=== PATIENT | female | born 1965 | race Caucasian/White ===

== ENCOUNTER 2019-06-15 14:19 | Emergency (ER) | payer OTHER, MEDICAID ==
[~2019-06-15] VITALS: Ht 172.7 cm; Wt 79.4 kg
[2019-06-15 14:55] VITALS: BP 127/99
== END 2019-06-15 16:26 | disposition home or self-care (01) ==
LOC: ER 14:19
DX: L03.031 Cellulitis of right toe (principal); E78.5 Hyperlipidemia, unspecified

== ENCOUNTER → 2022-08-02 | Emergency (ER) | payer OTHER, MEDICAID ==
[~2022-08-02] VITALS: Ht 172.7 cm; Wt 80.9 kg
[2022-08-02 17:25] VITALS: BP 109/82
== END | disposition left against medical advice (07) ==
LOC: ER 17:25
DX: M54.9 Dorsalgia, unspecified (principal); Z53.21 Procedure and treatment not carried out due to patient leaving prior to being seen by health care provider

== ENCOUNTER 2025-06-02 01:43 | Emergency (ER) | payer OTHER, MEDICAID ==
[~2025-06-02] VITALS: Ht 172.7 cm; Wt 80.0 kg
[2025-06-02 01:57] VITALS: BP 135/80; PULSE 107; RESP 14; TEMP 98.6; O2SAT 96
[2025-06-02] MEDS ORDERED: HYDROmorphone HCL 2 MG/ML VL/or syr IM ONE (02:15)
[2025-06-02] MEDS ORDERED: ONDANSETRON ODT 4 MG TAB PO ONE (02:15)
--- NOTE | 2025-06-02 02:15 | ED.PDOC ---
HPI (NEURO) HPI Comments A 60 year-old female, who ambulates with a electric wheelchair, with a HX migraines, presents to the ED via wheelchair with a chief complaint of migraine. Patient states she has used Imitrex in the past with success, but stated to rounds of Imitrex today did not stopped the headache. 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 Patient went to [facility] days ago and had a full work-up done, with Head CT, no aneurism was found. Patient has no further complaints at this time and otherwise denies N/V/D, dizziness, fever, chills, or chest pain. Chief Complaint: Migraine Time Seen by MD: 02:00 Primary Care Provider: IGNACIO Wellington Notes: Nurses Notes, Medications, Allergies Information Source: Patient Mode of Arrival: Wheelchair Severity: Moderate Dizziness/Weakness Severity: Unable to do activities Headache Severity: Severe Timing: Hours Duration: Since onset Prehospital treatment: None Headache Location: Generalized Onset: At rest, With light exertion, With heavy exertion Circumstances: Spontaneous Associated Signs and Symptoms: Headache, Other (Migraine ) Past Medical History PAST MEDICAL HISTORY: Arthritis, High Lipids Past Medical History (Other): History of migraines. Patient utilizes an electric wheelchair. Surgical History: Denies all surgeries MANAGER SUMMER History: Denies all MANAGER SUMMER Hx Family History Family History: No family hx of Heart kiet Social History Smoker: Non-Smoker Alcohol: Denies ETOH Use Drugs: Denies Drug Use Lives In: Home Constitutional: denies: chills, diaphoresis, fatigue, fever, malaise, sweats, weakness, others EENTM: denies: blurred vision, double vision, ear bleeding, ear discharge, ear drainage, ear pain, ear ringing, eye pain, eye redness, hearing loss, mouth pain, mouth swelling, nasal discharge, nose bleeding, nose congestion, nose pain, photophobia, tearing, throat pain, throat swelling, voice changes, others Respiratory: denies: cough, hemoptysis, orthopnea, SOB at rest, shortness of breath, SOB with excertion, stridor, wheezing, others Cardiovascular: denies: chest pain, dizzy spells, diaphoresis, Dyspnea on exertion, edema, irregular heart beat, left arm pain, lightheadedness, palpitations, PND, syncope, others Gastrointestinal: denies: abdomen distended, abdominal pain, blood streaked bowels, constipated, diarrhea, dysphagia, difficulty swallowing, hematemesis, melena, nausea, poor appetite, poor fluid intake, rectal bleeding, rectal pain, vomiting, others Genitourinary: denies: abnormal vagina bleeding, burning, dyspareunia, dysuria, flank pain, frequency, hematuria, incontinence, pain, , vagina discharge, urgency, others Neurological: reports: headache; denies: dizziness, fainting, left sided numbness, left sided weakness, numbness, paresthesia, pre-existing deficit, right sided numbness, right sided weakness, seizure, speech problems, tingling, tremors, weakness, others Musculoskeletal: denies: back pain, gout, joint pain, joint swelling, muscle p ain, muscle stiffness, neck pain, others Integumetry: denies: bruises, change in color, change in hair/nails, dryness, laceration, lesions, lumps, rash, wounds, others Allergic/Immunocompromised: denies: Difficulty Healing, Frequent Infections, Hives, Itching, others Hematologic/Lymphatic: denies: anemia, blood clots, easy bleeding, easy bruising, swollen glands, others Endocrine: denies: excessive hunger, excessive sweating, excessive thirst, excessive urination, flushing, intolerance to cold, intolerance to heat, unexplained weight gain, unexplained weight loss, others Psychiatric: denies: anxiety, bipolar disorder, depression, hopeless, panic disorder, schizophrenia, sleepless, suicidal, others All Other Systems: Reviewed and Negative Physical Exam General Appearance: Moderate Distress (Moderate distress due to headache concerns.), Normal HEENT: Head (Unremarkable cranial evaluation. No signs of trauma. No skull depressions or deformities.), Normal ENT Inspection, Pharynx Normal, TMs Normal Neck: Full Range of Motion, Non-Tender, Normal, Normal Inspection Respiratory: Chest Non-Tender, Lungs Clear, No Accessory Muscle Use, No Respiratory Distress, Normal Breath Sounds Cardiovascular: No Edema, No JVD, No Murmur, No Gallop, Normal Peripheral Pulses, Regular Rate/Rhythm Breast Exam: Deferred Gastrointestinal: No Organomegaly, Non Tender, No Pulsatile Mass, Normal Bowel Sounds, Soft Genitalia: Deferred Pelvic: Deferred Rectal: Deferred Extremities: Other (Patient utilizes an electric wheelchair for ambulation.) Neurologic: Alert, No Motor Deficits, Normal Affect, Normal Mood, No Sensory Deficits Cerebellar Function: NOT DONE Reflexes: NOT DONE Skin: Dry, Normal Color, Warm Lymphatic: No Adenopathy Was a procedure done? Was a procedure done?: No Differential Diagnosis (SZ) General Weakness: Anemia Headache: Migraine, Sinusitis, Other (Cluster headache, tension headache) X-Ray, Labs, Meds, VS Comment After patient was initially triaged, patient confess to suicidal ideations. Patient's narcotic pain medication was stopped and laboratories were ordered as well as request for tele psych evaluation. Time of 1ST Reevaluation: 02:24 Reevaluation 1ST: Unchanged Consultation: PCP, Psychiatry Patient Education/Counseling: Diagnosis, Treatment Family Education/Counseling: Diagnosis, Treatment, No Family Present Departure 1 Departure Time of Disposition: :24 Impression: Primary Impression: Suicidal ideation Additional Impression: Headache Disposition: 30 STILL A PATIENT Condition: Poor Discharged With: Self Critical Care Note Critical Care Time?: No Stability Stability form required: No Heart Score Heart Score: Heart Score Response (Comments) Value History N/A 0 EKG N/A 0 Age N/A 0 Risk Factors N/A 0 Troponin N/A 0 Total 0 I personally scribed for FELICIANO SANABRIA PAC ([email or web address]) on 06/02/25 at 02:15. Electronically submitted by Daya [email or web address]). FELICIANO SANABRIA PAC Jun 02, 2025 02:15
[2025-06-02] MEDS ORDERED: ACETAMINOPHEN 325 MG TAB PO ONE (02:30)
[2025-06-02 02:44] LABS: Hematocrit 38.5 % (36.0-46.0); Hemoglobin 13.4 g/dL (12.2-16.2); Mean Corpuscular Hemoglobin 31.2 pg (28.0-32.0); Mean Corpuscular Volume 89.5 fL (80.0-100.0); Nucleated Red Blood Cells % 0.1 %
[2025-06-02] MEDS ORDERED: METOCLOPRAMIDE HCL 5MG/ml INJ 2ml VIAL IM ONE (02:45)
[2025-06-02 02:48] LABS: Chloride 105 mmol/L (98-107); Potassium 4.5 mmol/L (3.5-5.1); Sodium 139 mmol/L (136-145)
[2025-06-02 02:49] LABS: Anion Gap 12 (5-15); Carbon Dioxide 22 mmol/L (20-31)
[2025-06-02 02:50] LABS: Calcium 9.1 mg/dL (8.7-10.4)
[2025-06-02 02:55] LABS: BUN/Creatinine Ratio 16.3 (10.0-20.0); Blood Urea Nitrogen 14 mg/dL (9-23); Glucose 141 mg/dL (74-106)
--- NOTE | 2025-06-02 07:00 | DVHINCON2 ---
Date of Service if different f: Jun 02, 2025 Time of Service: 06:25 Consult Consult Note PSYCHIATRY ED NEW CONSULT HPI: 60 yo pt with PPH of depression and PMH of migraine/chronic back pain presents to ED BIB self for safety, psychiatric stabilization, and possible med initiation in setting of migraine GARAY and passive SI. Psychiatry consulted for safety evaluation and recommendations in context of current presentation Pt reports over past several weeks experiencing worsening migraine HAs not relieved by Imitrex and hence has been experiencing poor sleep and passive fleeting SI with no plan or intent. Pt expressed anger and frustration her GARAY has not been addressed during course of this ED admission and that her SI has been given priority over her GARAY as SI is correlated with ongoing untreated GARAY Currently some depressed mood but to "my quality of life is poor when I have these migraine attacks" but denies hopelessness, helplessness, isolation, negative thoughts, or anhedonia. Denies anxiety/panic/OCD/PTSD symptoms. Also denies AVH/paranoia/catatonic/perceptual disturbances. No overt manic, psychotic, MDD, cognitive, dissociative, panic, OCD, PTSD, or somatic symptoms n oted. Overall appears future oriented/goal directed Does not have active outpt MH services established at this time although has psychiatry intake appt in several days. Currently not on any psychotropic agents although rx'd Duloxetine 60 mg bid for CBP, overall med compliant Denies ETOH, THC or IDU Single, unemployed/ssi, lives with roommate, some support system noted Unknown trauma hx. Denies FH of psych hospitalizations, suicide attempts, or completed suicides PMH: Migraine GARAY, CBP hence ambulates with electric wheelchair, is followed by pain specialist. No hx of seizures/TBI, or recent head injuries, NKDA Denies hx of SI/SIB/SA/PSG or prior psych hospitalizations/5150 holds. Denies history of violence, aggression, or assaultive behaviors. Denies any legal problems. Does not have access to firearms Currently denies SI/HI/AVH. Identifies self as PPF. No acute safety concerns noted during encounter MSE: General Appearance/Behavior: Alert/awake; appears stated age, fair grooming/hygiene; somewhat calm and cooperative, at times upset/irritable due to lack of medical care, fair eye contact Speech: coherent, rrr Thought Process: L/L/GD Thought Content: Abnormal Thoughts and Perceptions: denies dissociative symptoms Homicidality / Violent Thoughts: adamantly denies HI Suicidality: adamantly denies SI Hallucinations: denies AVTH Delusions: denies paranoia, persecutory, or grandiose delusions Obsessions /compulsions: None Judgment and Insight: fair/fair Mood & Affect: "okay, just upset" with mood-congruent, somewhat irritable/upset Orientation: oriented x 3 Attention/Concentration: appears intact Cognition: grossly intact Assessment: 60 yo pt with PPH of depression and PMH of migraine/chronic back pain presents to ED BIB self for safety, psychiatric stabilization, and possible med initiation in setting of migraine GARAY and passive SI Currently denies SI/HI/AVH. Linear and appears future oriented/goal directed in thought. No hx of SI/SA/SIB or prior psych hospitalizations is reassuring. Pt medically cleared Presenting MH symptoms / SI expression appear more secondary to difficulty controlling emotions and ineffective coping mechanisms in context of acute migraine attack (see HPI) Does not presently show any signs of immediate danger to self/others or GD that would necessitate 5150 or involuntary psych admission. However offered voluntary psych hospitalization but pt declined. Also declined further ED observation/reevaluation. No acute safety concerns noted. Acute suicide risk appears nonexistent to relatively low Pts symptoms should be managed safely in an outpatient setting - pt currently does not have psychiatrist/therapist out in community although has psychiatry intake appt in several days Currently not on any psychotropics although rx'd Duloxetine 60 mg bid for CBP. No indication to change current med regimen although May benefit from a short course of TCA antidepressant to address depressive/insomnia/pain symptoms exacerbated prior to this admission. Primary Diagnosis: Mood disorder unspecified. Plan: Does not warrant involuntary inpatient psychiatric hospitalization or 5150 hold No acute safety concerns Pt can be safely discharged back to current residence Recommend d/c pt on 3-4 week rx of Amitriptyline 50 mg qhs Risks/benefits/alternative treatments discussed, informed consent provided by pt Supportive tx provided, discussed safety plan with pt Emphasized sleep hygiene, exercise, healthy nutrition, etc Encouraged mindfulness techniques (reading, walking, meditation, journaling, exercise, deep breathing) during times of stress Pt plans to f/u with outpatient MH provider over next several weeks for ongoing med management upon establishing care Encouraged f/u with PCP for routine medical/preventive care Instructed pt to call/text [phone] or return to ED if MH symptoms worsen or new onset SI/HI upon discharge Pt verbalized understanding and is receptive to above tx plan This case was discussed with ED nurse/provider and all parties in agreement with above tx plan Elliot Walters MD Plan discussed with: Patient ELLIOT WALTERS MD Jun 02, 2025 07:00
== END 2025-06-02 07:23 | disposition left against medical advice (07) ==
LOC: ER 01:43
DX: R45.851 Suicidal ideations (principal); G43.909 Migraine, unspecified, not intractable, without status migrainosus; M19.90 Unspecified osteoarthritis, unspecified site; E78.5 Hyperlipidemia, unspecified; F32.A Depression, unspecified; Z79.899 Other long term (current) drug therapy
CPT/HCPCS: 36415; 80048; 80320; 85025